=== PATIENT | female | born 1945 ===

== ENCOUNTER 2023-12-15 14:40 | Day surgery (SDC) | payer MEDICARE ==
[~2023-12-15 14:40] MED LIST: ACYC400 PO; ALBU90OI INH; ASPI81CH; ATOR10 PO; BENZ100A PO; DULERA 200 MCG/13 GM; Diflucan100 MG PO; Dyazide 37.5-21 EACH; EUTHYROX88 MCG PO; GABA300; Isosorbide Mono30 MG; LEVFLO500 PO; LEVSOD100; LINZESS72 MCG; NITR.4SL SL; ONDA4ODT MM; PANT40 PO; PREG50 PO; TELM40 PO; VALA500; VENCLEXTA100 MG PO; VITAMIN D5000 UNIT PO
[2023-12-15 15:15] VITALS: BP 75/37
[2023-12-15] MEDS ORDERED: NS 250 ML IV SCH (15:20)
[2023-12-15 16:08] VITALS: BP 92/44
[2023-12-15 17:09] VITALS: BP 111/46
== END 2023-12-15 17:16 | disposition home or self-care (01) ==
LOC: ATC 14:40
DX: C92.00 Acute myeloblastic leukemia, not having achieved remission (principal); D61.818 Other pancytopenia; I12.9 Hypertensive chronic kidney disease with stage 1 through stage 4 chronic kidney disease, or unspecified chronic kidney disease; N18.9 Chronic kidney disease, unspecified; J44.9 Chronic obstructive pulmonary disease, unspecified; I25.10 Atherosclerotic heart disease of native coronary artery without angina pectoris; E78.5 Hyperlipidemia, unspecified; Z79.899 Other long term (current) drug therapy; Z90.49 Acquired absence of other specified parts of digestive tract
CPT/HCPCS: 36415; 36430; 80053; 85025; 86900; 86901; J7050; P9035

== ENCOUNTER 2023-12-22 12:00 | Day surgery (SDC) | payer MEDICARE ==
[2023-12-22 11:05] LABS: BASOPHILS PERCENT AUTO 0 % (0-2); EOSINOPHILS PERCENT AUTO 0 % (0-6); Hematocrit 26.6 % (33.0-51.0); Hemoglobin 8.7 g/dL (11.5-16.0); Mean Corpuscular HGB 31.8 pg (26.0-34.0); Mean Corpuscular HGB Conc 32.7 g/dL (31.5-36.5); Mean Corpuscular Volume 97 fL (80-100); RDW Coefficient Variation 18.3 % (11.7-14.2); RDW Standard Deviation 55.6 fL (35.1-46.3); Red Blood Cell Count 2.74 M/mm3 (3.80-5.20); White Blood Cell Count 2.22 K/mm3 (4.00-11.30)
[2023-12-22 11:09] LABS: IMMATURE GRAN PERCENT AUTO 0 % (0-1); LYMPHOCYTES ABSOLUTE AUTO 1.03 K/mm3 (0.84-5.20); LYMPHOCYTES PERCENT AUTO 46 % (21-46); MONOCYTES ABSOLUTE AUTO 0.23 K/mm3 (0.16-1.47); MONOCYTES PERCENT AUTO 10 % (4-13); NEUTROPHILS ABSOLUTE AUTO 0.96 K/mm3 (1.96-9.15); NEUTROPHILS PERCENT AUTO 43 % (41-73)
[2023-12-22 11:11] LABS: Platelet Count 6 K/mm3 (150-400)
[2023-12-22 11:30] LABS: Albumin, Blood 3.4 g/dL (3.4-5.0); Albumin/Globulin Ratio 1.2 (0.8-1.8); Bilirubin, Total 1.7 mg/dL (0.1-1.0); Bun/Creatinine Ratio 19.2 (12.0-20.0); Calcium, Blood 8.7 mg/dL (8.5-10.1); Creatinine, Blood 1.2 mg/dL (0.40-1.00); Globulin, Blood 2.8 g/dL (2.2-4.0); Potassium, Blood 3.9 mmol/L (3.5-5.5); Total Protein, Blood 6.2 g/dL (6.4-8.2)
[2023-12-22] MEDS ORDERED: NS 250 ML IV SCH (12:25)
[2023-12-22 13:34] VITALS: BP 126/66
[2023-12-22 13:57] VITALS: BP 138/69
[2023-12-22 14:49] VITALS: BP 150/74
== END 2023-12-22 14:55 | disposition home or self-care (01) ==
LOC: ATC 12:00
PROVIDERS: Internal Medicine Hematology & Oncology
DX: C92.00 Acute myeloblastic leukemia, not having achieved remission (principal); D61.818 Other pancytopenia; I12.9 Hypertensive chronic kidney disease with stage 1 through stage 4 chronic kidney disease, or unspecified chronic kidney disease; N18.9 Chronic kidney disease, unspecified; I25.10 Atherosclerotic heart disease of native coronary artery without angina pectoris; J44.9 Chronic obstructive pulmonary disease, unspecified; K21.9 Gastro-esophageal reflux disease without esophagitis; E78.5 Hyperlipidemia, unspecified; Z79.899 Other long term (current) drug therapy; Z90.49 Acquired absence of other specified parts of digestive tract
CPT/HCPCS: 36415; 36430; 80053; 85025; 86900; 86901; J7050; P9035

== ENCOUNTER 2023-12-30 03:38 | Day surgery (SDC) | payer MEDICARE ==
[2023-12-29 10:21] LABS: Hemoglobin 9.5 g/dL (11.5-16.0); Mean Corpuscular HGB 30.7 pg (26.0-34.0); Mean Corpuscular HGB Conc 32.8 g/dL (31.5-36.5); Mean Corpuscular Volume 94 fL (80-100); RDW Coefficient Variation 17.2 % (11.7-14.2); RDW Standard Deviation 52.7 fL (35.1-46.3); Red Blood Cell Count 3.09 M/mm3 (3.80-5.20); White Blood Cell Count 3.35 K/mm3 (4.00-11.30)
[2023-12-29 11:40] LABS: Platelet Count 10 K/mm3 (150-400)
[2023-12-29 14:07] LABS: BAND PERCENT MAN 6 % (0-8); BASOPHILS PERCENT MAN 0 % (0-2); EOSINOPHILS ABSOLUTE MAN 0.06 K/mm3 (0.00-0.68); EOSINOPHILS PERCENT MAN 2 % (0-6); LYMPHOCYTES % ATYPICAL MANUAL 2 % (0-0); LYMPHOCYTES ABSOLUTE MAN 1.57 K/mm3 (0.84-5.20); LYMPHOCYTES PERCENT MAN 45 % (21-46); MONOCYTES ABSOLUTE MAN 0.06 K/mm3 (0.16-1.47); MONOCYTES PERCENT MAN 2 % (4-13); NEUTROPHILS ABSOLUTE MAN 1.64 K/mm3 (1.96-9.15); SEG NEUTROPHILS PERCENT MAN 43 % (41-73); TOTAL CELLS COUNTED 100
[2023-12-30] MEDS ORDERED: NS 250 ML IV SCH (10:10)
[2023-12-30 10:19] VITALS: BP 124/58
[2023-12-30 11:02] VITALS: BP 121/54
[2023-12-30 11:46] VITALS: BP 103/77
== END 2023-12-30 11:51 | disposition home or self-care (01) ==
LOC: ATC 03:38
PROVIDERS: Internal Medicine Hematology & Oncology
DX: C92.00 Acute myeloblastic leukemia, not having achieved remission (principal); D61.818 Other pancytopenia; J45.909 Unspecified asthma, uncomplicated; I25.10 Atherosclerotic heart disease of native coronary artery without angina pectoris; J44.9 Chronic obstructive pulmonary disease, unspecified; K21.9 Gastro-esophageal reflux disease without esophagitis; I12.9 Hypertensive chronic kidney disease with stage 1 through stage 4 chronic kidney disease, or unspecified chronic kidney disease; N18.9 Chronic kidney disease, unspecified; E78.5 Hyperlipidemia, unspecified; Z79.899 Other long term (current) drug therapy
CPT/HCPCS: 36415; 36430; 85025; 86900; 86901; J7050; P9035

== ENCOUNTER 2024-06-16 04:57 | Day surgery (SDC) | payer MEDICARE ==
[2024-06-14 11:06] LABS: Hematocrit 21.3 % (33.0-51.0); Mean Corpuscular HGB 35.9 pg (26.0-34.0); Mean Corpuscular HGB Conc 32.9 g/dL (31.5-36.5); Mean Corpuscular Volume 109 fL (80-100); NRBC ABSOLUTE 0.02 K/mm3 (0.00-0.02); NRBC Auto 1.6 /100 WBC (0.0-0.2); RDW Coefficient Variation 23.9 % (11.7-14.2); RDW Standard Deviation 87.3 fL (35.1-46.3); Red Blood Cell Count 1.95 M/mm3 (3.80-5.20); White Blood Cell Count 1.22 K/mm3 (4.00-11.30)
[2024-06-14 11:28] LABS: Platelet Count 38 K/mm3 (150-400)
[2024-06-14 11:38] LABS: BASOPHILS PERCENT MAN 0 % (0-2); EOSINOPHILS PERCENT MAN 0 % (0-6); LYMPHOCYTES ABSOLUTE MAN 1.07 K/mm3 (0.84-5.20); LYMPHOCYTES PERCENT MAN 88 % (21-46); MONOCYTES PERCENT MAN 0 % (4-13); NEUTROPHILS ABSOLUTE MAN 0.14 K/mm3 (1.96-9.15); SEG NEUTROPHILS PERCENT MAN 12 % (41-73); TOTAL CELLS COUNTED 50
[2024-06-14 12:48] LABS: Albumin, Blood 3.6 g/dL (3.4-5.0); Albumin/Globulin Ratio 1.4 (0.8-1.8); Bilirubin, Total 0.8 mg/dL (0.1-1.0); Bun/Creatinine Ratio 28.7 (12.0-20.0); Calcium, Blood 9.2 mg/dL (8.5-10.1); Creatinine, Blood 1.57 mg/dL (0.40-1.00); Globulin, Blood 2.6 g/dL (2.2-4.0); Potassium, Blood 4.1 mmol/L (3.5-5.5); Total Protein, Blood 6.2 g/dL (6.4-8.2)
[2024-06-16] MEDS ORDERED: NS 250 ML IV SCH (07:00)
[2024-06-16 13:42] VITALS: BP 106/61
[2024-06-16 14:11] VITALS: BP 108/88
[2024-06-16 15:22] VITALS: BP 127/54
[2024-06-16 15:48] VITALS: BP 136/67
[2024-06-16 17:11] VITALS: BP 150/81
[2024-06-16 17:46] VITALS: BP 113/70
== END 2024-06-16 17:51 | disposition home or self-care (01) ==
LOC: ATC 04:57
PROVIDERS: Internal Medicine Hematology & Oncology
DX: C92.00 Acute myeloblastic leukemia, not having achieved remission (principal); D61.818 Other pancytopenia; I25.10 Atherosclerotic heart disease of native coronary artery without angina pectoris; I12.9 Hypertensive chronic kidney disease with stage 1 through stage 4 chronic kidney disease, or unspecified chronic kidney disease; N18.9 Chronic kidney disease, unspecified; J44.9 Chronic obstructive pulmonary disease, unspecified; K21.9 Gastro-esophageal reflux disease without esophagitis; E78.5 Hyperlipidemia, unspecified
CPT/HCPCS: 36415; 36430; 80053; 85025; 86850; 86900; 86901; 86923; J7050; P9016